=== PATIENT | female | born 1960 | race Two or more races ===

== ENCOUNTER 2024-05-14 21:18 | Emergency (ER) | payer OTHER ==
[~2024-05-14] VITALS: Ht 157.5 cm; Wt 87.8 kg
[2024-05-14 21:46] VITALS: BP 142/90; PULSE 80; RESP 16; O2SAT 96
[2024-05-14] MEDS ORDERED: METOCLOPRAMIDE HCL 5MG/ml INJ 2ml VIAL IV ONE (22:00)
[2024-05-14] MEDS ORDERED: SODIUM CHLORIDE 0.9% 1,000 ML IV ONE (22:00)
[2024-05-14] MEDS ORDERED: ACETAMINOPHEN 325 MG TAB PO ONE (22:00)
== END 2024-05-14 22:55 | disposition left against medical advice (07) ==
LOC: ER 21:18
DX: R51.9 Headache, unspecified (principal); R53.1 Weakness; M79.605 Pain in left leg; M79.604 Pain in right leg; E11.9 Type 2 diabetes mellitus without complications; I10 Essential (primary) hypertension; Z88.0 Allergy status to penicillin